=== PATIENT | female | born 1950 | race Asian ===

== ENCOUNTER → 2017-03-12 | Outpatient (CLI) | payer OTHER ==
[~2017-03-12] MED LIST: COZ50 PO; SYN88 PO
[2017-03-12 09:51] LABS: BASOPHIL % 0.5 % (0-2); PLATELET COUNT 260 x10^3mcL (130-400); RED CELL DISTRIBUTION WIDTH 14.2 % (11.5-14.5)
[2017-03-12 09:56] LABS: microscopic required? YES; urine erythrocyte NEGATIVE (NEGATIVE)
[2017-03-12 10:16] LABS: ALBUMIN 3.8 g/dL (3.4-5.0); ALKALINE PHOSPHATASE 93 U/L (46-116); ALT/SGPT 32 U/L (14-59); AST/SGOT 21 U/L (15-37); BILIRUBIN TOTAL 0.8 mg/dL (0.20-1.00); CALCIUM 8.6 mg/dL (8.5-10.1); CARBON DIOXIDE 30.4 mmol/L (21-32); CHLORIDE SERUM 103 mmol/L (98-107); CREATININE SERUM 0.8 mg/dL (0.6-1.0); FREE T4 1.37 ng/dL (0.76-1.46); GFR1 > 60 mL/min; GLUCOSE SERUM 100 mg/dL (74-106); HDL CHOLESTEROL 47 mg/dL (40-60); POTASSIUM SERUM 3.9 mmol/L (3.5-5.1); SODIUM SERUM 139 mmol/L (136-145); TRIGLYCERIDES 171 mg/dL (<150)
[2017-03-12 10:21] LABS: CHOLESTEROL 233 mg/dL (<200); TOTAL PROTEIN, SERUM 8.8 g/dL (6.4-8.2)
[2017-03-12 11:27] LABS: ERYTHROCYTE SED RATE 29 mm/hr (0-30)
== END | disposition home or self-care (01) ==
LOC: RD 09:19
DX: M25.50 Pain in unspecified joint (principal); I10 Essential (primary) hypertension
CPT/HCPCS: 84439; 86431

== ENCOUNTER → 2017-04-01 | Outpatient (CLI) | payer OTHER | END | disposition home or self-care (01) | LOC: MA 13:46 | PROC: BH02ZZZ Plain Radiography of Bilateral Breasts (ICD-10-PCS; principal; 2017-04-01) | DX: Z12.31 Encounter for screening mammogram for malignant neoplasm of breast (principal); M25.561 Pain in right knee | CPT/HCPCS: G0202 ==

== ENCOUNTER → 2017-06-15 | Outpatient (CLI) | payer OTHER | END | disposition home or self-care (01) | LOC: MI 14:40 | PROC: BP38ZZZ Magnetic Resonance Imaging (MRI) of Right Shoulder (ICD-10-PCS; principal; 2017-06-15) | DX: M25.511 Pain in right shoulder (principal) ==

== ENCOUNTER 2017-09-24 06:08 | Inpatient (IN) | payer OTHER ==
[2017-09-17 11:00] LABS: microscopic required? NO
[2017-09-17 11:21] LABS: BASOPHIL % 0.5 % (0-2); PLATELET COUNT 261 x10^3mcL (130-400)
[2017-09-17 11:23] LABS: RED CELL DISTRIBUTION WIDTH 14.8 % (11.5-14.5)
[2017-09-17 11:29] LABS: urine erythrocyte NEGATIVE (NEGATIVE)
[2017-09-17 11:36] LABS: CALCIUM 9.1 mg/dL (8.5-10.1); CARBON DIOXIDE 28.7 mmol/L (21-32); CHLORIDE SERUM 102 mmol/L (98-107); CREATININE SERUM 0.9 mg/dL (0.6-1.0); GFR1 > 60 mL/min; GLUCOSE SERUM 96 mg/dL (74-106); POTASSIUM SERUM 3.9 mmol/L (3.5-5.1); SODIUM SERUM 141 mmol/L (136-145)
[~2017-09-24] VITALS: Ht 152.4 cm; Wt 79.4 kg
[2017-09-24 06:31] VITALS: BP 151/87
[2017-09-24 13:37] VITALS: BP 134/68
[2017-09-24 18:15] VITALS: BP 119/67
[2017-09-24 20:54] VITALS: BP 118/68
[2017-09-25 08:51] VITALS: BP 120/60
[2017-09-25 13:55] VITALS: BP 114/61
[2017-09-25 17:00] VITALS: BP 131/61
[2017-09-25 21:27] VITALS: BP 111/61
[2017-09-26 05:47] VITALS: BP 121/67
[2017-09-26 08:51] VITALS: BP 114/68
[2017-09-26 10:49] VITALS: BP 114/68
== END 2017-09-26 12:11 | disposition home or self-care (01) | DRG 502 ==
LOC: DS 06:08 → OR 07:30 → MU 12:49 → DS 12:49 → DU 12:49 → MU 13:01
PROVIDERS: Neuromusculoskeletal Medicine, Sports Medicine
PROC: 0MB10ZZ Excision of Right Shoulder Bursa and Ligament, Open Approach (ICD-10-PCS; 2017-09-24)
PROC: 0RNJ0ZZ Release Right Shoulder Joint, Open Approach (ICD-10-PCS; 2017-09-24)
PROC: 0LQ10ZZ Repair Right Shoulder Tendon, Open Approach (ICD-10-PCS; principal; 2017-09-24 07:30)
DX: M75.101 Unspecified rotator cuff tear or rupture of right shoulder, not specified as traumatic (principal); Z88.8 Allergy status to other drugs, medicaments and biological substances
CPT/HCPCS: C1713; J0690; J1170; J1885; J2250; J2270; J2405; J2704; J3010; J3490; J7030; J7120